=== PATIENT | female | born 1985 ===

== ENCOUNTER 2021-12-15 16:16 | Outpatient (REF) | payer OTHER, SELFPAY ==
[2021-12-15 19:19] LABS: Influenza A PCR NEGATIVE (Negative); Influenza B PCR NEGATIVE (Negative); Resp Syncy Virus RNA Qual PCR NEGATIVE (Negative); SARS COV2 PCR INHOUSE NEGATIVE (Negative)
== END 2021-12-15 16:17 | disposition home or self-care (01) ==
LOC: HO.LAB 16:16
PROVIDERS: Visit Provider Internal Medicine
DX: Z20.822 Contact with and (suspected) exposure to COVID-19 (principal); R43.9 Unspecified disturbances of smell and taste
CPT/HCPCS: 0241U